=== PATIENT | female | born 1970 | race Hispanic/Latino ===

== ENCOUNTER 2018-09-08 05:06 | Emergency (ER) | payer OTHER ==
[2018-09-08] MEDS ORDERED: FAMOTIDINE/PF 20 MG/2 ML VIAL IV ONE (05:29)
[2018-09-08] MEDS ORDERED: DiphenhydrAMINE HCL 50 MG/ML VIAL ONE (05:29)
[2018-09-08] MEDS ORDERED: METHYLPREDNISOLONE SOD SUCC 125MG/2ML VIAL ONE (05:29)
[2018-09-08 05:50] LABS: BASOPHILS % (AUTO) 1.1 % (0.0-5.0); EOSINOPHILS % (AUTO) 5.8 % (0.0-8.0); MEAN CORPUSCULAR HGB CONC 33.9 g/dL (32.0-36.0); MEAN CORPUSCULAR VOLUME 88.5 fL (79-99); MONOCYTES % (AUTO) 11.8 % (3.0-13.0); NEUTROPHILS % (AUTO) 41.3 % (40.0-77.0); NUCLEATED RED BLOOD CELLS 0.1 % (0.0-0.19); PLATELET COUNT (AUTO) 220 K/uL (130-400); RED BLOOD CELL COUNT(AUTO) 3.73 MIL/uL (4.00-5.50); RED CELL DISTRIBUTION WIDTH 13.7 % (11.0-15.5); WHITE BLOOD COUNT (AUTO) 2.5 K/uL (4.8-10.8)
[2018-09-08 05:56] LABS: CREATININE 0.6 mg/dL (0.5-1.5)
[2018-09-08 06:01] LABS: ALBUMIN 3.3 g/dL (3.5-5.0); BILIRUBIN,TOTAL 0.2 mg/dL (0.2-1.0); TOTAL PROTEIN, SERUM 7.1 g/dL (6.0-8.3)
[2018-09-08 06:06] LABS: BASOPHILS % (MANUAL) 3 % (0-2); EOSINOPHILS % (MANUAL) 8 % (1-6); LYMPHOCYTES % (MANUAL) 40 % (22-44); MAN.DIFF COMMENT-IMPRESSION MANUAL DIFFERENTIAL; MONOCYTES % (MANUAL) 8 % (2-9); SEGMENTED NEUTROPHILS % 41 % (40-70)
== END 2018-09-08 07:15 | disposition home or self-care (01) ==
LOC: EDH 05:06
DX: T78.3XXA Angioneurotic edema, initial encounter (principal); T40.4X5A Adverse effect of other synthetic narcotics, initial encounter; K21.9 Gastro-esophageal reflux disease without esophagitis; Z72.0 Tobacco use; Y92.89 Other specified places as the place of occurrence of the external cause
CPT/HCPCS: 36415; 71045; 80053; 85025; 93005; 96374; 96375; 99284; J1200; J2930; J3490